=== PATIENT | male | born 1980 | race Caucasian/White ===

== ENCOUNTER → 2017-01-31 | Outpatient (CLI) | payer OTHER ==
[2017-01-31 15:02] LABS: BASO # 0.1 x10^3/uL (0.0-0.2); BASO % 1 % (0-3); EOS # 0.1 x10^3/uL (0.0-0.7); EOS % 1 % (0-3); HEMATOCRIT 28.4 % (39.0-53.0); HEMOGLOBIN 9.1 g/dL (13.0-17.5); LYMPH # 2.6 x10^3/uL (1.0-4.8); LYMPH % 29 % (24-48); MEAN CORPUSCULAR HEMOGLOBIN 23 pg (25-35); MEAN CORPUSCULAR HGB CONC 32 g/dL (31-37); MEAN CORPUSCULAR VOLUME 73 fL (79-100); MONO # 0.5 x10^3/uL (0.0-1.1); MONO % 6 % (0-9); NEUT # 5.5 x10^3uL (1.8-7.7); NEUT % 62 % (31-73); PLATELET COUNT 306 x10^3/uL (140-400); RED BLOOD COUNT 3.88 x10^6/uL (4.30-5.70); RED CELL DISTRIBUTION WIDTH 16.8 % (11.5-14.5); WHITE BLOOD COUNT 8.8 x10^3/uL (4.0-11.0)
[2017-01-31 16:51] LABS: % LYMPHS 32 % (24-48); % MONOS 7 % (0-10); % SEGS 61 % (35-66)
[2017-01-31 18:11] LABS: MICROCYTOSIS SLIGHT; POLYCHROMASIA PRESENT
[2017-01-31 18:12] LABS: HYPOCHROMIA SLIGHT; PLT ESTIMATE ADEQUATE (ADEQUATE)
[2017-01-31 18:17] LABS: OVALOCYTES FEW
[2017-01-31 18:18] LABS: ANISOCYTOSIS PRESENT
--- NOTE | 2017-02-01 17:13 | PATHOLOGY ---
PATHOLOGY REPORT * * * * * * * * FINAL DIAGNOSIS: Peripheral smear: - Microcytic anemia, moderate, with mild anisopoikilocytosis. COMMENT: The peripheral smear shows a moderate microcytic anemia. Red blood cells predominantly appear normochromic. Some of the red blood cells appear hypochromic. Red blood cells show mild anisopoikilocytosis with presence of several ovalocytes. With these morphologic findings, would recommend serum iron studies to rule out iron deficiency anemia. (JPM:mgr; 02/01/2017) REPORT ELECTRONICALLY SIGNED BY: Yakov Curran M.D. DATE/TIME: 02/01/2017 17:11 * * * * * * * * MICROSCOPIC DESCRIPTION: Laboratory Data: The WBC count is 8.8 K/CMM, and the WBC differential reveals 62% neutrophils, 29% lymphs, 6% monos, 1% eos, and 1% baso. The RBC count is 3.88 M/CMM, hemoglobin 9.1 G/DL, hematocrit 28.4%, MCV 73 FL, MCH 23 PG, MCHC 32 G/DL, and the RDW is 16.8%. The platelet count is 306 K/CMM. Peripheral Smear: The peripheral smear is reviewed. The WBC count is normal. The WBC differential reveals a predominance of segmented neutrophils, with a smaller population of lymphocytes and with several monocytes and an occasional eosinophil noted. There is no significant neutrophilic left shift. There are no circulating blasts. There is no leukoerythroblastic reaction. The lymphocyte population consists predominantly of small mature appearing lymphocytes. Red blood cells predominantly appear normochromic. Some of the red blood cells appear hypochromic. Red blood cells predominantly appear microcytic, but do show mild anisocytosis and range from microcytic to normocytic. Red blood cells show mild poikilocytosis with several ovalocytes noted. Platelets appear normal in number and morphology. INITIAL CPT CODE(S): A; [place] Professional services performed by [facility] at [facility] [address] [place] [id number] Technical services performed by [facility] at [address] [place] [address], [address], [place] [address]. Macho Carmen, fax: SPECIMEN(S) RECEIVED: A.Peripheral smear CLINICAL HISTORY: Physician request PBS review by Dr. Macho Carmen, R53.83: Other fatigue PATIENT: DELON ESPINOZA /AGE: 406/05/1980 (Age: 36) PATIENT #: [id number] ALT CASE #: SPECIMEN COLLECTION DATE: 01/31/2017 SPECIMEN RECEIVED DATE: 02/01/2017 [facility] - [address] [place] [address] - PHONE: [phone] * * * END OF REPORT * * *
== END | disposition home or self-care (01) ==
LOC: LAB 14:18
PROVIDERS: ATTEND Internal Medicine
DX: R53.83 Other fatigue (principal)
CPT/HCPCS: 36415; 85007; 85025